=== PATIENT | male | born 1975 | race Caucasian/White ===

== ENCOUNTER 2020-08-19 09:46 | Emergency (ER) | payer OTHER ==
[2020-08-19] MEDS ORDERED: Reglan 10 MG/2 ML IV ONE (09:59)
[2020-08-19] MEDS ORDERED: MORPHINE SULFATE 10 MG/ML IV ONE (09:59)
[2020-08-19] MEDS ORDERED: Sodium Chloride 0.9% 1000 ML 1,000 ML IV STA (09:59)
[2020-08-19] MEDS ORDERED: Sodium Chloride 0.9% 1000 ML 1,000 ML ONE (10:08)
[2020-08-19] MEDS ORDERED: Reglan 10 MG/2 ML ONE (10:08)
[2020-08-19] MEDS ORDERED: MORPHINE SULFATE 10 MG/ML ONE (10:08)
[2020-08-19 10:25] LABS: BASOPHIL % 1.2 % (0.0-0.4); Basophil (Absolute #) 0.08 (0-0.4); Eosinophil % 1.9 % (0.00-5.0); Eosinophil (Absolute #) 0.13 (0-0.5); Hematocrit 43.2 % (42-50); Lymphocyte (Absolute #) 2.21 (1.0-4.6); Lymphocytes % 32.3 % (24.0-44.0); Mean Cell Volume 92.9 fl (78-100); Mean Corpuscular Hemoglobin 30.1 pg (26-32); Mean Corpuscular Hgb Concent. 32.4 g/dl (32-36); Mean Platelet Volume 12.8 fl (7.5-11.0); Monocyte (Absolute #) 0.62 (0.0-1.3); Monocytes % 9.1 % (0.0-12.0); Neutrophil % 55.5 % (36.0-66.0); Platelet Count 253 K/mm3 (150-450); Red Blood Count 4.65 M/mm3 (4.1-5.6); Red Cell Distribution Width 13.5 % (11.5-14.0); White Blood Count 6.8 K/mm3 (4.0-10.5)
--- NOTE | 2020-08-19 10:47 | XRAY ---
Indication: Right upper quadrant pain. Two-dimensional gallbladder sonogram performed. Comparison: None Pancreas obscured due to overlying bowel gas. Gallbladder normally distended without gallstones, wall thickening, or pericholecystic fluid. Common bile duct measures 3.5 mm. No intrahepatic biliary distention or ascites. Remaining visualized liver and right kidney sonographically unremarkable. Right kidney measures 10.6 cm in length. Impression: Pancreas not visualized. Remaining gallbladder sonogram is negative.
[2020-08-19 10:59] LABS: ALBUMIN 4.6 g/dL (3.5-5.0); ALKALINE PHOSPHATASE 98 U/L (38-126); AMYLASE 86 U/L (30-110); ANION GAP 12.6 MEQ/L (5-15); BLOOD UREA NITROGEN 17 mg/dL (9-20); CHLORIDE 106 mmol/L (98-107); Calcium 9.5 mg/dL (8.4-10.2); Carbon Dioxide 25 mmol/L (22-30); EST GLOMERULAR FILTRATION RATE > 60.0 ML/MIN; Glucose 115 mg/dL (74-106); LIPASE 111 U/L (23-300); Potassium 4.2 mmol/L (3.5-5.1); SGOT/AST 25 U/L (17-59); SGPT/ALT 28 U/L (0-50); SODIUM 140 mmol/L (137-145); Total Protein 7.5 g/dL (6.3-8.2)
[2020-08-19 11:18] LABS: Appearance CLEAR (CLEAR); Bilirubin NEGATIVE (NEGATIVE); Blood NEGATIVE Ery/ul (0-5); Glucose NEGATIVE (NEGATIVE); Ketones NEGATIVE (NEGATIVE); Leukocyte Esterase NEGATIVE (NEGATIVE); Mucus SLIGHT /HPF (NEGATIVE); Nitrite NEGATIVE (NEGATIVE); Protein,Urine Dip NEGATIVE (Negative); RBC 0-2 /HPF (0-2); Urobilinogen NEGATIVE mg/dL (0-1)
--- NOTE | 2020-08-19 11:30 | ERPHSYRPT ---
- History of Present Illness Time Seen by Provider: 08/19/20 10:00 Historian: patient Exam Limitations: no limitations Patient Subjective Stated Complaint: Pt began having pain in his RUQ yesterday that has gotten worse today Triage Nursing Assessment: Pt's brought him to the ER, holding RUQ, hypertensive, rates pain 9/10, pulses normal, denies injury, denies any abdominal surgeries, skin n/w/diaphoretic Physician History: 44 years old male presented in the ER with chief complaint of right upper quadrant pain sudden onset yesterday, moderate to severe intensity, sharp in nature, nonradiating, aggravated with movement palpation and unable to find a comfortable spot. Associated with nausea but no vomiting. Denies any fever chills or cough. Denies any history of gallbladder issues in the past. Timing/Duration: yesterday, sudden, worse Activities at Onset: rest Quality: sharpness, stabbing Abdominal Pain Onset Location: RUQ, flank Pain Radiation: no radiation Severity of Pain-Max: severe Severity of Pain-Current: severe Modifying Factors: Worsens With: movement, palpation Associated Symptoms: nausea, No vomiting Previous symptoms: no prior history Allergies/Adverse Reactions: gabapentin Allergy (Verified 08/19/20 10:09) Home Medications: Buprenorphine HCl [Belbuca] 450 mcg PO Q12H 08/19/20 [History] Lisinopril 10 mg [Zestril 10 MG] 10 mg PO DAILY 08/19/20 [History] Meloxicam 15 mg PO DAILY 08/19/20 [History] Pregabalin 150 mg PO TID 08/19/20 [History] Travel Risk - International Travel If Yes, where;: N - Coronavirus Screening Close contact with a COVID-19 positive Pt in past 14-21 Days: No - Review of Systems Constitutional: No Symptoms Eyes: No Symptoms Ears, Nose, & Throat: No Symptoms Respiratory: No Symptoms Cardiac: No Symptoms Abdominal/Gastrointestinal: Abdominal Pain, Nausea Genitourinary Symptoms: No Symptoms Musculoskeletal: No Symptoms Skin: No Symptoms Neurological: No Symptoms Psychological: No Symptoms Endocrine: No Symptoms Hematologic/Lymphatic: No Symptoms Immunological/Allergic: No Symptoms - Past Medical History Pertinent Past Medical History: Yes Musculoskeletal History: Other History: Other - Past Surgical History Past Surgical History: Yes Musculoskeletal: Orthopedic Surgery Other Surgical History: has stimulator in back, shoulder - Social History Smoking Status: Former smoker Exposure to second hand smoke: No Drug Use: none Patient Lives Alone: No - Nursing Vital Signs Nursing Vital Signs: Initial Vital Signs Temperature 98.3 F 08/19/20 09:52 Pulse Rate 77 08/19/20 09:52 Blood Pressure 153/86 08/19/20 09:52 O2 Sat by Pulse Oximetry 98 08/19/20 09:52 Pain Scale Pain Intensity 6 - Physical Exam General Appearance: no apparent distress Eye Exam: PERRL/EOMI, eyes nml inspection Ears, Nose, Throat Exam: normal ENT inspection, pharynx normal Neck Exam: normal inspection, non-tender, supple, full range of motion Respiratory Exam: normal breath sounds, lungs clear Cardiovascular Exam: regular rate/rhythm, normal heart sounds Gastrointestinal/Abdomen Exam: soft, normal bowel sounds, tenderness (Right upper quadrant), guarding Back Exam: normal inspection, normal range of motion, No CVA tenderness Extremity Exam: normal inspection, normal range of motion, pelvis stable Neurologic Exam: alert, oriented x 3, cooperative, 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 Skin Exam: normal color SpO2 Interpretation: normal SpO2: 97 O2 Delivery: Room Air Ordered Tests: Active Orders 24 hr Category Date Time Status IV Insertion STAT Care 08/19/20 09:59 Completed NPO (ED) STAT Care 08/19/20 09:59 Completed ABDOMEN AND PELVIS W CONTRAST [CT] Stat Exams 08/19/20 10:51 Completed GALLBLADDER [US] Stat Exams 08/19/20 10:00 Completed AMYLASE Stat Lab 08/19/20 10:04 Completed CBC W DIFF Stat Lab 08/19/20 10:04 Completed CMP Stat Lab 08/19/20 10:04 Completed LIPASE Stat Lab 08/19/20 10:04 Completed Lactic Acid Stat Lab 08/19/20 09:59 Completed UA W/RFX UR CULTURE Stat Lab 08/19/20 11:13 Completed Medication Summary Discontinued Medications Generic Name Dose Route Start Last Admin Trade Name Freq PRN Reason Stop Dose Admin Sodium Chloride 1,000 mls @ 999 mls/hr 08/19/20 09:59 08/19/20 11:19 Sodium Chloride 0.9% 1000 Ml IV 08/19/20 10:59 Infused .Q1H1M STA Infusion Sodium Chloride Confirm 08/19/20 10:08 Sodium Chloride 0.9% 1000 Ml Administered 08/19/20 10:09 Dose 1,000 mls @ ud .ROUTE .STK-MED ONE Ketorolac Tromethamine 30 mg 08/19/20 11:44 08/19/20 11:46 Toradol 30 Mg Injection IV 08/19/20 11:45 30 mg STAT ONE Administration Ketorolac Tromethamine Confirm 08/19/20 11:45 Toradol 30 Mg Injection Administered 08/19/20 11:46 Dose 30 mg .ROUTE .STK-MED ONE Metoclopramide HCl 10 mg 08/19/20 09:59 08/19/20 10:11 Reglan 10 Mg/2 Ml IV 08/19/20 10:00 10 mg STAT ONE Administration Metoclopramide HCl Confirm 08/19/20 10:08 Reglan 10 Mg/2 Ml Administered 08/19/20 10:09 Dose 10 mg .ROUTE .STK-MED ONE Morphine Sulfate 6 mg 08/19/20 09:59 08/19/20 10:12 Morphine Sulfate 10 Mg/Ml IV 08/19/20 10:00 6 mg STAT ONE Administration Morphine Sulfate Confirm 08/19/20 10:08 Morphine Sulfate 10 Mg/Ml Administered 08/19/20 10:09 Dose 10 mg .ROUTE .STK-MED ONE Lab/Rad Data: Laboratory Result Diagrams 08/19/20 10:04 08/19/20 10:04 Laboratory Results 08/19/20 08/19/20 08/19/20 Range/Units 11:13 10:04 10:04 WBC 6.8 (4.0-10.5) K/mm3 RBC 4.65 (4.1-5.6) M/mm3 Hgb 14.0 (12.5-18.0) gm/dl Hct 43.2 (42-50) % MCV 92.9 (78-100) fl MCH 30.1 (26-32) pg MCHC 32.4 (32-36) g/dl RDW 13.5 (11.5-14.0) % Plt Count 253 (150-450) K/mm3 MPV 12.8 H (7.5-11.0) fl Gran % 55.5 (36.0-66.0) % Eos # (Auto) 0.13 (0-0.5) Absolute Lymphs (auto) 2.21 (1.0-4.6) Absolute Monos (auto) 0.62 (0.0-1.3) Lymphocytes % 32.3 (24.0-44.0) % Monocytes % 9.1 (0.0-12.0) % Eosinophils % 1.9 (0.00-5.0) % Basophils % 1.2 (0.0-0.4) % Absolute Granulocytes 3.80 (1.4-6.9) Basophils # 0.08 (0-0.4) Sodium 140 (137-145) mmol/L Potassium 4.2 (3.5-5.1) mmol/L Chloride 106 (98-107) mmol/L Carbon Dioxide 25 (22-30) mmol/L Anion Gap 12.6 (5-15) MEQ/L BUN 17 (9-20) mg/dL Creatinine 0.90 (0.66-1.25) mg/dL Estimated GFR > 60.0 ML/MIN Glucose 115 H (74-106) mg/dL Lactic Acid (0.4-2.0) Calcium 9.5 (8.4-10.2) mg/dL Total Bilirubin 0.20 (0.2-1.3) mg/dL AST 25 (17-59) U/L ALT 28 (0-50) U/L Alkaline Phosphatase 98 (38-126) U/L Serum Total Protein 7.5 (6.3-8.2) g/dL Albumin 4.6 (3.5-5.0) g/dL Amylase 86 (30-110) U/L Lipase 111 (23-300) U/L Urine Color YELLOW (YELLOW) Urine Appearance CLEAR (CLEAR) Urine pH 7.0 (5-6) Ur Specific [place] 1.020 (1.005-1.025) Urine Protein NEGATIVE (Negative) Urine Ketones NEGATIVE (NEGATIVE) Urine Blood NEGATIVE (0-5) Slick/ul Urine Nitrite NEGATIVE (NEGATIVE) Urine Bilirubin NEGATIVE (NEGATIVE) Urine Urobilinogen NEGATIVE (0-1) mg/dL Ur Leukocyte Esterase NEGATIVE (NEGATIVE) Urine WBC (Auto) 3-5 (0-5) /HPF Urine RBC (Auto) 0-2 (0-2) /HPF U Epithel Cells (Auto) NONE (FEW) /HPF Urine Bacteria (Auto) NONE (NEGATIVE) /HPF Urine Mucus (Auto) SLIGHT (NEGATIVE) /HPF Urine Culture Reflexed NO (NO) Urine Glucose NEGATIVE (NEGATIVE) mg/dL Slides for Path Review YES 08/19/20 Range/Units 09:59 WBC (4.0-10.5) K/mm3 RBC (4.1-5.6) M/mm3 Hgb (12.5-18.0) gm/dl Hct (42-50) % MCV (78-100) fl MCH (26-32) pg MCHC (32-36) g/dl RDW (11.5-14.0) % Plt Count (150-450) K/mm3 MPV (7.5-11.0) fl Gran % (36.0-66.0) % Eos # (Auto) (0-0.5) Absolute Lymphs (auto) (1.0-4.6) Absolute Monos (auto) (0.0-1.3) Lymphocytes % (24.0-44.0) % Monocytes % (0.0-12.0) % Eosinophils % (0.00-5.0) % Basophils % (0.0-0.4) % Absolute Granulocytes (1.4-6.9) Basophils # (0-0.4) Sodium (137-145) mmol/L Potassium (3.5-5.1) mmol/L Chloride (98-107) mmol/L Carbon Dioxide (22-30) mmol/L Anion Gap (5-15) MEQ/L BUN (9-20) mg/dL Creatinine (0.66-1.25) mg/dL Estimated GFR ML/MIN Glucose (74-106) mg/dL Lactic Acid 2.2 H (0.4-2.0) Calcium (8.4-10.2) mg/dL Total Bilirubin (0.2-1.3) mg/dL AST (17-59) U/L ALT (0-50) U/L Alkaline Phosphatase (38-126) U/L Serum Total Protein (6.3-8.2) g/dL Albumin (3.5-5.0) g/dL Amylase (30-110) U/L Lipase (23-300) U/L Urine Color (YELLOW) Urine Appearance (CLEAR) Urine pH (5-6) Ur Specific [place] (1.005-1.025) Urine Protein (Negative) Urine Ketones (NEGATIVE) Urine Blood (0-5) Slick/ul Urine Nitrite (NEGATIVE) Urine Bilirubin (NEGATIVE) Urine Urobilinogen (0-1) mg/dL Ur Leukocyte Esterase (NEGATIVE) Urine WBC (Auto) (0-5) /HPF Urine RBC (Auto) (0-2) /HPF U Epithel Cells (Auto) (FEW) /HPF Urine Bacteria (Auto) (NEGATIVE) /HPF Urine Mucus (Auto) (NEGATIVE) /HPF Urine Culture Reflexed (NO) Urine Glucose (NEGATIVE) mg/dL Slides for Path Review - Progress Progress: improved, pain not gone completely Progress Note: 08/19/20 44 years old is evaluated for right upper quadrant pain. He is given IV fluid and pain medications. Has normal white count, grossly unremarkable chemistries. I have obtained ultrasound which is negative for acute cholecystitis. I have done CT abdomen pelvis with contrast which showed some constipation but no other acute findings to explain his pain. Do not know the exact cause of his pain could be musculoskeletal but have ruled out all the major emergencies. He is advised to take Tylenol ibuprofen as needed along with the pain medication he is on. Discussed signs symptoms of worsening needing return to ER which he seems understanding. At this point I do not think patient needs any further work-up in the ER or needs to be admitted and is stable for discharge. Counseled pt/family regarding: lab results, diagnosis, need for follow-up, rad results, smoking cessation - Departure Departure Disposition: Home Clinical Impression: Right upper quadrant abdominal pain Constipation Qualifiers: Constipation type: unspecified constipation type Qualified Code(s): K59.00 - Constipation, unspecified Condition: Stable Critical Care Time: No Referrals: DOCTOR,NO FAMILY [Primary Care Provider] - MARY DAI MD [ACTIVE STAFF] - (1-2 days for re evaluation ) Instructions: Acute Abdomen (Belly Pain), Adult (DC) Additional Instructions: Continue with your current pain medications. Take stool softener and MiraLAX daily. Follow-up with primary care physician for reevaluation. Return to ER for worsening pain or if develop nausea vomiting diarrhea etc. Prescriptions: Polyethylene Glycol 3350 [Miralax] 17 gm PO DAILY 30 Days #30 [email or web address]
[2020-08-19] MEDS ORDERED: TORAdol 30 mg Injection IV ONE (11:44)
[2020-08-19] MEDS ORDERED: TORAdol 30 mg Injection ONE (11:45)
--- NOTE | 2020-08-19 11:47 | XRAY ---
Indication: Right upper quadrant/right flank pain. Multiple contiguous axial images obtained through the abdomen and pelvis using 80 cc Isovue 370 contrast only. Comparison: None Lung bases clear of infiltrate or effusion. Heart is not enlarged. Noncontrasted stomach and bowel loops appear nonobstructed. Normal appendix. There is moderate diffuse scattered colonic fecal debris greatest in the ascending and transverse colon. No free fluid/air. Remaining liver, gallbladder, pancreas, spleen, adrenal glands, kidneys, ureters, bladder, and aorta appear normal in CT appearance and attenuation. No pathologic retroperitoneal lymphadenopathy. Osseous structures intact with incidental mild L5-S1 degenerative disc disease and left posterior spinal stimulator device with epidural leads terminating T7 level. Small fatty left inguinal hernia Impression: 1. Diffuse fecal stasis, small fatty left inguinal hernia, and chronic bony findings. 2. Remaining CT abdomen/pelvis with contrast exam is negative.
[2020-08-19 12:27] VITALS: BP 124/77; PULSE 65; O2SAT 97
[2020-08-19 14:01] LABS: Slide Review 1 YES
== END 2020-08-19 13:03 | disposition home or self-care (01) ==
LOC: ED 09:46
DX: R10.11 Right upper quadrant pain (principal); K59.00 Constipation, unspecified
CPT/HCPCS: 36415; 74177; 76705; 80053; 81001; 82150; 83605; 83690; 85025; 96360; 96374; 96375; 99284; J1885; J2270

== ENCOUNTER 2021-01-19 12:34 | Emergency (ER) | payer OTHER ==
--- NOTE | 2021-01-19 12:39 | ERPHSYRPT ---
- History of Present Illness Time Seen by Provider: 01/19/21 12:39 Source: patient Exam Limitations: clinical condition Physician History: This is a 45-year-old white male who has history of chronic pain issues and has a pain stimulator in his back for recurrent herniated disc. He has not had any recent injury to his back but 2 days ago he began having intermittent back pain that has worsened and now is persistently present. He states in his left lower back that goes down his buttock and his posterior left leg. Patient arrives by home vehicle driven by his . Patient has a pain specialist, Dr. Mills. The patient did not call his pain specialist yesterday or today despite having the pain. Timing/Duration: day(s) (2) Quality: radiating, sharp, cramping Back Pain Location: lumbar spine, paraspinous muscles Back Pain Radiation: buttocks, upper legs (Posteriorly) Severity of Pain-Max: moderate Severity of Pain-Current: moderate Associated Symptoms: denies symptoms Previous symptoms: same symptoms as today Allergies/Adverse Reactions: gabapentin Allergy (Verified 01/19/21 12:46) Home Medications: Buprenorphine HCl [Belbuca] 750 mcg PO Q12H 08/19/20 [History] Lisinopril 10 mg [Zestril 10 MG] 10 mg PO DAILY 08/19/20 [History] Meloxicam 15 mg PO DAILY 08/19/20 [History] Pregabalin 150 mg PO TID 08/19/20 [History] Travel Risk - International Travel Have you traveled outside of the country in past 3 weeks: No - Coronavirus Screening Are you exhibiting any of the following symptoms?: No Close contact with a COVID-19 positive Pt in past 14-21 Days: No - Vaccine Status Have you recieved a Covid-19 vaccination: No - Review of Systems Constitutional: No Symptoms Eyes: No Symptoms Ears, Nose, & Throat: No Symptoms Respiratory: No Symptoms Cardiac: No Symptoms Abdominal/Gastrointestinal: No Symptoms Genitourinary Symptoms: No Symptoms Musculoskeletal: Back Pain Skin: No Symptoms Neurological: No Symptoms Psychological: No Symptoms Endocrine: No Symptoms Hematologic/Lymphatic: No Symptoms Immunological/Allergic: No Symptoms All Other Systems: Reviewed and Negative - Past Medical History Pertinent Past Medical History: Yes Musculoskeletal History: Other History: Other - Past Surgical History Past Surgical History: Yes Musculoskeletal: Orthopedic Surgery Other Surgical History: has stimulator in back, shoulder - Social History Smoking Status: Former smoker Exposure to second hand smoke: No Drug Use: none Patient Lives Alone: No - Nursing Vital Signs Nursing Vital Signs: Initial Vital Signs Temperature 98.4 F 01/19/21 12:36 Pulse Rate 83 01/19/21 12:36 Blood Pressure 152/73 01/19/21 12:36 O2 Sat by Pulse Oximetry 98 01/19/21 12:36 Pain Scale Pain Intensity [Left Lower 10 Posterior Distal Back] Pain Intensity 10 - Physical Exam General Appearance: moderate distress, alert, anxiety, other (Patient is writhing around back and forth up and down on his hospital room bed despite having severe back pain) Eye Exam: PERRL/EOMI, eyes nml inspection Ears, Nose, Throat Exam: normal ENT inspection, moist mucous membranes Neck Exam: normal inspection, non-tender, supple, full range of motion Respiratory Exam: normal breath sounds, lungs clear, airway intact, No chest tenderness, No respiratory distress Cardiovascular Exam: regular rate/rhythm, normal heart sounds, normal peripheral pulses Gastrointestinal Exam: soft, normal bowel sounds, No tenderness Rectal Exam: not done Back Exam: normal inspection, decreased range of motion, muscle spasm, No CVA tenderness, No vertebral tenderness Extremity Exam: normal inspection, normal range of motion, pelvis stable Neurologic Exam: alert, oriented x 3, cooperative, 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 Skin Exam: normal color, warm, dry Lymphatic Exam: No adenopathy SpO2 Interpretation: normal O2 Delivery: Room Air - Course Nursing assessment & vital signs reviewed: Yes Ordered Tests: Medication Summary Generic Name Dose Route Start Last Admin Trade Name Agustín PRN Reason Stop Dose Admin Hydromorphone HCl 1 mg 01/19/21 12:55 Hydromorphone 1 Mg/Ml Injection IM 01/19/21 12:56 STAT ONE - Progress Progress: improved, pain not gone completely, re-examined Counseled pt/family regarding: diagnosis, need for follow-up - Departure Departure Disposition: Home Clinical Impression: Sciatica Condition: Stable Critical Care Time: No Referrals: DOCTOR,NO FAMILY [Primary Care Provider] - Additional Instructions: Call your pain specialist today to make arrangements for follow-up appointment to deal with your chronic pain issues. Hold your meloxicam until you complete your prednisone medication Prescriptions: Carisoprodol 350 mg [Soma 350 mg] 350 mg PO Q8H PRN PRN #10 tablet PRN Reason: Muscle Spasms Prednisone 10 mg [Deltasone 10 mg] 10 mg PO TID #12 tablet
[2021-01-19 12:46] VITALS: BP 152/73; PULSE 83; O2SAT 98
[2021-01-19] MEDS ORDERED: Hydromorphone 1 mg/ml Injection ONE (13:02)
[2021-01-19] MEDS ORDERED: Ativan 2 MG/1 ML VIAL ONE (13:02)
[2021-01-19] MEDS ORDERED: solu-MEDROL 125 MG ONE (13:02)
[2021-01-19] MEDS ORDERED: ZOFRAN ODT 4 MG ONE (13:02)
[2021-01-19] MEDS: solu-MEDROL 125 MG IM ONE (13:04)
[2021-01-19] MEDS: ZOFRAN ODT 4 MG PO ONE (13:04)
[2021-01-19] MEDS: Hydromorphone 1 mg/ml Injection IM ONE (13:04)
[2021-01-19] MEDS: Ativan 2 MG/1 ML VIAL IM ONE (13:04)
== END 2021-01-19 13:31 | disposition home or self-care (01) ==
LOC: ED 12:34
DX: M54.32 Sciatica, left side (principal)
CPT/HCPCS: 96372; 99284; J1170; J2060; J2930; Q0162

== ENCOUNTER 2021-08-26 16:58 | Emergency (ER) | payer OTHER ==
--- NOTE | 2021-08-26 17:18 | ERPHSYRPT ---
- History of Present Illness Time Seen by Provider: 08/26/21 17:17 Source: patient Exam Limitations: no limitations Patient Subjective Stated Complaint: pt to ER with complaints of back pain and left leg pain. pt states he has chronic pain but it has been gettting worse the past couple days. pt states he hasnt been able to take his pain meds much because he is nauseated from all the pain and vomits the meds up. Triage Nursing Assessment: pt a&ox4. pt rolling around in pain. pt jerking every once in awhile stating he has shooting pain that goes down his L leg. Physician History: This is a obese 45-year-old white male who has a pain specialist, Dr. Mills. The patient is on Beecher, prednisone and Soma. However, he states in the last 2 to 3 days he has not been able to take his medication because of nausea and vo miting issues and worsening pain in the mornings the last 2 to 3 days. He did not suffer any acute trauma or fall. He has a pain stimulator in his back. He has not contacted his pain specialist despite having these symptoms for a few days. He has no loss of bowel or bladder control. Timing/Duration: day(s) (2 to 3 days) Method of Injury: other (No fall or trauma) Quality: sharp, stabbing Back Pain Location: lumbar spine, paraspinous muscles (Left side) Severity of Pain-Max: moderate Severity of Pain-Current: moderate Modifying Factors: Improves With: movement Associated Symptoms: lower back pain, No urinary incontinence, No loss of bowel control, No numbness in legs/feet Allergies/Adverse Reactions: gabapentin Allergy (Verified 08/26/21 17:17) Home Medications: Buprenorphine HCl [Belbuca] 750 mcg PO Q12H 08/19/20 [History] Lisinopril 10 mg [Zestril 10 MG] 10 mg PO DAILY 08/19/20 [History] Meloxicam 15 mg PO DAILY 08/19/20 [History] Pregabalin 150 mg PO TID 08/19/20 [History] Hx Tetanus, Diphtheria Vaccination/Date Given: Yes Hx Influenza Vaccination/Date Given: Yes Hx Pneumococcal Vaccination/Date Given: No Immunizations Up to Date: Yes Travel Risk - International Travel Have you traveled outside of the country in past 3 weeks: No - Coronavirus Screening Are you exhibiting any of the following symptoms?: No Close contact with a COVID-19 positive Pt in past 14-21 Days: No - Vaccine Status Have you recieved a Covid-19 vaccination: Yes 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 - Vaccination Dates Date of 2cond Vaccination (if applicable): january - Review of Systems Constitutional: No Symptoms Eyes: No Symptoms Ears, Nose, & Throat: No Symptoms Respiratory: No Symptoms Cardiac: No Symptoms Abdominal/Gastrointestinal: No Symptoms Genitourinary Symptoms: No Symptoms Musculoskeletal: Back Pain, No Fall, No Injury Skin: No Symptoms Neurological: No Symptoms Psychological: No Symptoms Endocrine: No Symptoms Hematologic/Lymphatic: No Symptoms Immunological/Allergic: No Symptoms All Other Systems: Reviewed and Negative - Past Medical History Pertinent Past Medical History: Yes Musculoskeletal History: Other History: Other - Past Surgical History Past Surgical History: Yes Musculoskeletal: Orthopedic Surgery Other Surgical History: has stimulator in back, shoulder - Social History Smoking Status: Former smoker Exposure to second hand smoke: No Drug Use: none Patient Lives Alone: No - Nursing Vital Signs Nursing Vital Signs: Initial Vital Signs Temperature 98.1 F 08/26/21 17:08 Pulse Rate 78 08/26/21 17:08 Respiratory Rate 18 08/26/21 17:08 Blood Pressure 137/65 08/26/21 17:08 O2 Sat by Pulse Oximetry 99 08/26/21 17:08 Pain Scale Pain Intensity 10 - Physical Exam General Appearance: moderate distress, alert, anxiety, obese Eye Exam: PERRL/EOMI, eyes nml inspection Ears, Nose, Throat Exam: normal ENT inspection, moist mucous membranes Neck Exam: normal inspection, non-tender, supple, full range of motion Respiratory Exam: normal breath sounds, lungs clear, airway intact, No chest tenderness, No respiratory distress Cardiovascular Exam: regular rate/rhythm, normal heart sounds, normal peripheral pulses Gastrointestinal Exam: soft, normal bowel sounds, No tenderness Rectal Exam: not done Back Exam: normal inspection, decreased range of motion, muscle spasm Extremity Exam: normal inspection, normal range of motion, pelvis stable Neurologic Exam: alert, oriented x 3, cooperative, 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, normal mood/affect Skin Exam: normal color, warm, dry Lymphatic Exam: No adenopathy SpO2 Interpretation: normal SpO2: 99 O2 Delivery: Room Air - Course Nursing assessment & vital signs reviewed: Yes Ordered Tests: Medication Summary Discontinued Medications Generic Name Dose Route Start Last Admin Trade Name Freq PRN Reason Stop Dose Admin Methylprednisolone Sodium 0 mg 08/26/21 17:46 Succinate 125 mg/ Sterile IM 08/26/21 17:47 Water 2 ml STAT ONE Hydromorphone HCl 1 mg 08/26/21 17:45 Hydromorphone 1 Mg/1ml Inj 1 Mg/Ml Syringe IM 08/26/21 17:46 STAT ONE Lorazepam 1 mg 08/26/21 17:47 Lorazepam 2 Mg/1 Ml 2 Mg Vial IM 08/26/21 17:48 STAT ONE Prochlorperazine Edisylate 10 mg 08/26/21 17:46 Prochlorperazine Edisylate 10 Mg/2 Ml Vial IM 08/26/21 17:47 STAT ONE - Progress Progress: improved, pain not gone completely Counseled pt/family regarding: diagnosis, need for follow-up - Departure Departure Disposition: Home Clinical Impression: Acute exacerbation of chronic low back pain Condition: Stable Critical Care Time: No Referrals: [facility] [Primary Care Provider] - Follow up/PCP as directed Additional Instructions: Call your pain specialist tomorrow morning for further management and instructions. Continue your medication as prescribed. Stop your Zofran and use the Phenergan suppositories for nausea control. Prescriptions: Promethazine HCl 25 mg [Phenergan 25 mg] 25 mg PO Q8H PRN PRN #10 tablet PRN Reason: Nausea/Vomiting
[2021-08-26] MEDS ORDERED: Hydromorphone 1 mg/ml Injection IM ONE (17:45)
[2021-08-26] MEDS ORDERED: Compazine 10 MG/2 ML IM ONE (17:46)
[2021-08-26] MEDS ORDERED: solu-MEDROL 125 MG, Sterile H2O 10 ml 2 ML IM ONE ×2 (17:46)
[2021-08-26] MEDS ORDERED: Ativan 2 MG/1 ML VIAL IM ONE (17:47)
[2021-08-26] MEDS ORDERED: Ativan 2 MG/1 ML VIAL ONE (17:50)
[2021-08-26] MEDS ORDERED: Hydromorphone 1 mg/ml Injection ONE (17:51)
[2021-08-26] MEDS ORDERED: solu-MEDROL ONE (17:51)
[2021-08-26] MEDS ORDERED: Compazine 10 MG/2 ML ONE (17:51)
[2021-08-26 18:11] VITALS: BP 138/84; PULSE 79; O2SAT 96
== END 2021-08-26 18:20 | disposition home or self-care (01) ==
LOC: ED 16:58
DX: M54.50 Low back pain, unspecified (principal); G89.29 Other chronic pain; R11.2 Nausea with vomiting, unspecified; Z79.891 Long term (current) use of opiate analgesic; Z96.82 Presence of neurostimulator
CPT/HCPCS: 96372; 99284; J1170; J2060; J2930

== ENCOUNTER 2023-05-01 16:14 | Emergency (ER) | payer MEDICARE, OTHER | END 2023-05-01 18:55 | disposition left against medical advice (07) | LOC: ED 16:14 | DX: Z53.21 Procedure and treatment not carried out due to patient leaving prior to being seen by health care provider (principal) ==

== ENCOUNTER 2023-07-15 10:51 | Emergency (ER) | payer MEDICARE, OTHER ==
[2023-07-15] MEDS ORDERED: Hydromorphone 1 mg/ml Injection IV ONE ×2 (11:01→14:54)
[2023-07-15] MEDS ORDERED: DECADRON 10MG INJ. IV ONE (11:01)
[2023-07-15] MEDS ORDERED: Sodium Chloride 0.9% 1000 ML 1,000 ML IV STA (11:01)
[2023-07-15] MEDS ORDERED: Zofran 4 MG/2 ML VIAL IV ONE (11:04)
[2023-07-15 11:06] VITALS: TEMP 100.9
[2023-07-15] MEDS ORDERED: Zofran 4 MG/2 ML VIAL ONE (11:26)
[2023-07-15] MEDS ORDERED: DECADRON 10MG INJ. ONE (11:27)
[2023-07-15] MEDS ORDERED: Hydromorphone 1 mg/ml Injection ONE ×2 (11:27→15:14)
[2023-07-15] MEDS ORDERED: Sodium Chloride 0.9% 1000 ML 1,000 ML ONE (11:27)
[2023-07-15 11:28] LABS: Absolute Neutrophil Ct (ANC) 6.57 x10^3/uL (1.4-6.9); BASOPHIL % 0.6 % (0.0-0.4); Basophil (Absolute #) 0.05 x10^3/uL (0-0.4); Eosinophil % 0.8 % (0.00-5.0); Eosinophil (Absolute #) 0.07 x10^3/uL (0-0.5); Hematocrit 40.9 % (42-50); Hemoglobin 13.8 g/dL (12.5-18.0); IMMATURE GRAN # 0.01 x10^3u/L (0.00-0.03); IMMATURE GRAN % 0.1 % (0.00-0.4); Mean Cell Volume 90.5 fL (78-100); Mean Corpuscular Hemoglobin 30.5 pg (26-32); Mean Corpuscular Hgb Concent. 33.7 g/dL (32-36); Monocyte (Absolute #) 0.52 x10^3/uL (0.0-1.3); Monocytes % 5.8 % (0.0-12.0); Neutrophil % 72.7 % (36.0-66.0); Platelet Count 203 x10^3/uL (150-450); Red Blood Count 4.52 x10^6/uL (4.1-5.6); Red Cell Distribution Width 12.7 % (11.5-14.0)
[2023-07-15 12:07] LABS: AMYLASE 54 U/L (30-110); LIPASE 47 U/L (23-300)
[2023-07-15 12:09] LABS: ALBUMIN 4.4 g/dL (3.5-5.0); ALKALINE PHOSPHATASE 87 U/L (38-126); BLOOD UREA NITROGEN 17 mg/dL (9-20); CHLORIDE 105 mmol/L (98-107); Calcium 8.9 mg/dL (8.4-10.2); Carbon Dioxide 26 mmol/L (22-30); Creatinine 1 0.72 mg/dL (0.66-1.25); EST GLOMERULAR FILTRATION RATE > 60.0 ML/MIN; Glucose 131 mg/dL (74-106); Potassium 3.6 mmol/L (3.5-5.1); SGOT/AST 24 U/L (17-59); SGPT/ALT 18 U/L (0-50); SODIUM 137 mmol/L (137-145); Total Protein 6.8 g/dL (6.3-8.2)
--- NOTE | 2023-07-15 13:17 | ERPHSYRPT ---
- History of Present Illness Time Seen by Provider: 07/15/23 11:00 Source: patient, family Exam Limitations: clinical condition Patient Subjective Stated Complaint: Pt c/o of low back pain that radiates down his left leg and has low left abdominal pain Triage Nursing Assessment: brought pt to the ER, vitals wnl, rates pain as 10/10, pt rolling all over the bed and crying, states he has the pain in his back but his abdomen just feels sick, pulses normal, skin n/w/d, has a nerve stimulator in his back but states that it doesn't work, no bowel movement for 3- 4 days but states that is normal Physician History: Patient is a 47-year-old male who presents with low back pain which radiates down the left leg and abdominal pain and nausea. He has a long history of low back pain and has a 9 usable nerve stimulator implanted in his back. He is writhing crying in pain. He says he is had no bowel movement for 3 to 4 days he does take 30 mg of codeine several times a day as well as Buprenex long-acting. Timing/Duration: today Method of Injury: unknown Quality: radiating, stabbing Back Pain Location: lumbar spine Back Pain Radiation: lower legs Severity of Pain-Max: severe Severity of Pain-Current: severe Modifying Factors: Improves With: movement Associated Symptoms: nausea Allergies/Adverse Reactions: gabapentin Allergy (Verified 07/15/23 11:06) Home Medications: Buprenorphine HCl [Belbuca] 900 mcg PO Q12H 08/19/20 [History] Lisinopril 10 mg [Zestril 10 MG] 10 mg PO DAILY 08/19/20 [History] Chlorthalidone 25 mg PO DAILY 07/15/23 [History] Codeine Sulfate 30 mg PO QID 07/15/23 [History] Lemborexant [Dayvigo] 10 mg PO UD 07/15/23 [History] Pregabalin [Lyrica 150Mg] 150 mg PO TID 07/15/23 [History] Testosterone Cypionate 200 mg IM WEEKLY 07/15/23 [History] Hx Tetanus, Diphtheria Vaccination/Date Given: Yes Hx Influenza Vaccination/Date Given: Yes Hx Pneumococcal Vaccination/Date Given: No Travel Risk - International Travel Have you traveled outside of the country in past 3 weeks: No - Coronavirus Screening Are you exhibiting any of the following symptoms?: No Close contact with a COVID-19 positive Pt in past 14-21 Days: No - Vaccine Status Have you recieved a Covid-19 vaccination: Yes Bus Cleaner: Moderna - Vaccination Dates Date of 2cond Vaccination (if applicable): january - Review of Systems Constitutional: No Fever, No Chills Eyes: No Symptoms Ears, Nose, & Throat: No Symptoms Respiratory: No Cough, No Dyspnea Cardiac: No Chest Pain, No Edema, No Syncope Abdominal/Gastrointestinal: Abdominal Pain, Nausea, No Vomiting, No Diarrhea Genitourinary Symptoms: No Dysuria Musculoskeletal: Back Pain, No Neck Pain Skin: No Rash Neurological: No Dizziness, No Focal Weakness, No Sensory Changes Psychological: No Symptoms Endocrine: No Symptoms All Other Systems: Reviewed and Negative - Past Medical History Pertinent Past Medical History: Yes Musculoskeletal History: Other History: Other Other Medical History: l4 and l5 blown out disc - Past Surgical History Past Surgical History: Yes Musculoskeletal: Orthopedic Surgery Other Surgical History: has stimulator in back, shoulder. back surgery - Social History Smoking Status: Former smoker Exposure to second hand smoke: No Drug Use: marijuana Patient Lives Alone: No - Nursing Vital Signs Nursing Vital Signs: Initial Vital Signs Temperature 100.9 F 07/15/23 10:58 Pulse Rate 75 07/15/23 10:58 Respiratory Rate 20 07/15/23 10:58 Blood Pressure 138/66 07/15/23 10:58 O2 Sat by Pulse Oximetry 95 07/15/23 10:58 Pain Scale Pain Intensity 10 - Physical Exam General Appearance: severe distress Eye Exam: PERRL/EOMI, eyes nml inspection Neck Exam: normal inspection, non-tender, supple, full range of motion, No meningismus, No midline tenderness Respiratory Exam: normal breath sounds, lungs clear, No respiratory distress Cardiovascular Exam: regular rate/rhythm, normal heart sounds Gastrointestinal Exam: soft, tenderness, No mass Back Exam: decreased range of motion, muscle spasm Extremity Exam: normal inspection, normal range of motion, No calf tenderness, No pedal edema Neurologic Exam: alert, oriented x 3, cooperative, frame expander II-XII nml as tested, normal mood/affect, nml station & gait, sensation nml, No motor deficits Skin Exam: normal color, warm, dry, No rash SpO2 Interpretation: normal SpO2: 99 O2 Delivery: Room Air - Course Nursing assessment & vital signs reviewed: Yes - CT Exams Abdomen/Pelvis CT Interpretation: Tele-radiologist Report, Other (Teleradiology did not mention a grossly distended bladder which we noted and treated.) Ordered Tests: Active Orders 24 hr Category Date Time Status IV Insertion STAT Care 07/15/23 11:04 Active ABDOMEN AND PELVIS W/0 CONTRAS [CT] Stat Exams 07/15/23 13:18 Completed AMYLASE Stat Lab 07/15/23 11:25 Completed CBC W DIFF Stat Lab 07/15/23 11:25 Completed CMP Stat Lab 07/15/23 11:25 Completed LIPASE Stat Lab 07/15/23 11:25 Completed UA W/RFX UR CULTURE Stat Lab 07/15/23 14:31 Completed Urine Triage Profile Stat Lab 07/15/23 14:31 Received Medication Summary Discontinued Medications Generic Name Dose Route Start Last Admin Trade Name Freq PRN Reason Stop Dose Admin Dexamethasone Sodium Phosphate 8 mg 07/15/23 11:01 07/15/23 11:29 Dexamethasone Sod Phosphate 10 Mg/Ml IV 07/15/23 11:02 8 mg STAT ONE Administration Dexamethasone Sodium Phosphate Confirm 07/15/23 11:27 Dexamethasone Sod Phosphate 10 Mg/Ml Administered 07/15/23 11:28 Dose 10 mg .ROUTE .STK-MED ONE Hydromorphone HCl 1 mg 07/15/23 11:01 07/15/23 11:29 Hydromorphone 1 Mg/1ml Inj IV 07/15/23 11:02 1 mg STAT ONE Administration Hydromorphone HCl Confirm 07/15/23 11:27 Hydromorphone 1 Mg/1ml Inj Administered 07/15/23 11:28 Dose 1 mg .ROUTE .STK-MED ONE Sodium Chloride 1,000 mls @ 999 mls/hr 07/15/23 11:01 07/15/23 13:09 Sodium Chloride 0.9% 1000 Ml IV 07/15/23 12:01 Infused .Q1H1M STA Infusion Sodium Chloride Confirm 07/15/23 11:27 Sodium Chloride 0.9% 1000 Ml Administered 07/15/23 11:28 Dose 1,000 mls @ ud .ROUTE .STK-MED ONE Ketorolac Tromethamine 30 mg 07/15/23 13:28 07/15/23 13:31 Ketorolac Tromethamine 30 Mg/Ml Inj IV 07/15/23 13:29 30 mg STAT ONE Administration Ketorolac Tromethamine Confirm 07/15/23 13:30 Ketorolac Tromethamine 30 Mg/Ml Inj Administered 07/15/23 13:31 Dose 30 mg .ROUTE .STK-MED ONE Ondansetron HCl 4 mg 07/15/23 11:04 07/15/23 11:29 Ondansetron Hcl 4 Mg/2 Ml Vial IV 07/15/23 11:05 4 mg STAT ONE Administration Ondansetron HCl Confirm 07/15/23 11:26 Ondansetron Hcl 4 Mg/2 Ml Vial Administered 07/15/23 11:27 Dose 4 mg .ROUTE .STK-MED ONE Lab/Rad Data: Laboratory Result Diagrams 07/15/23 11:25 07/15/23 11:25 Laboratory Results 07/15/23 07/15/23 07/15/23 Range/Units 14:31 11:25 11:25 WBC (4.0-10.5) x10^3/uL RBC (4.1-5.6) x10^6/uL Hgb (12.5-18.0) g/dL Hct (42-50) % MCV (78-100) fL MCH (26-32) pg MCHC (32-36) g/dL RDW (11.5-14.0) % Plt Count (150-450) x10^3/uL MPV (7.5-11.0) fL Gran % (36.0-66.0) % Immature Gran % (Auto) (0.00-0.4) % Nucleat RBC Rel Count (0.00-0.1) % Eos # (Auto) (0-0.5) x10^3/uL Immature Gran # (Auto) (0.00-0.03) x10^3u/L Absolute Lymphs (auto) (1.0-4.6) x10^3/uL Absolute Monos (auto) (0.0-1.3) x10^3/uL Absolute Nucleated RBC (0.00-0.01) x10^3u/L Lymphocytes % (24.0-44.0) % Monocytes % (0.0-12.0) % Eosinophils % (0.00-5.0) % Basophils % (0.0-0.4) % Absolute Granulocytes (1.4-6.9) x10^3/uL Basophils # (0-0.4) x10^3/uL Sodium 137 (137-145) mmol/L Potassium 3.6 (3.5-5.1) mmol/L Chloride 105 (98-107) mmol/L Carbon Dioxide 26 (22-30) mmol/L Anion Gap 10.0 (5-15) MEQ/L BUN 17 (9-20) mg/dL Creatinine 0.72 (0.66-1.25) mg/dL Estimated GFR > 60.0 ML/MIN Glucose 131 H (74-106) mg/dL Calcium 8.9 (8.4-10.2) mg/dL Total Bilirubin 0.70 (0.2-1.3) mg/dL AST 24 (17-59) U/L ALT 18 (0-50) U/L Alkaline Phosphatase 87 (38-126) U/L Serum Total Protein 6.8 (6.3-8.2) g/dL Albumin 4.4 (3.5-5.0) g/dL Amylase 54 (30-110) U/L Lipase 47 (23-300) U/L Urine Color Yellow (Yellow) Urine Appearance Clear (Clear) Urine pH 7.5 (4.6-8.0) Ur Specific [place] 1.010 (1.005-1.030) Urine Protein Negative (Negative) Urine Glucose (UA) Negative (Negative) mg/dL Urine Ketones 15 A (Negative) Urine Blood Negative (Negative) Urine Nitrite Negative (Negative) Urine Bilirubin Negative (Negative) Urine Urobilinogen 0.2 (0.2) mg/dL Ur Leukocyte Esterase Negative (Negative) U Hyaline Cast (Auto) NONE SEEN (0-2) /LPF Urine Microscopic RBC 0-2 (0-5) /HPF Urine Microscopic WBC 0-2 (0-5) /HPF Ur Epithelial Cells None Seen (None Seen) /HPF Urine Bacteria None Seen (None Seen) /HPF Urine Culture Reflexed NO (NO) 07/15/23 Range/Units 11:25 WBC 9.0 (4.0-10.5) x10^3/uL RBC 4.52 (4.1-5.6) x10^6/uL Hgb 13.8 (12.5-18.0) g/dL Hct 40.9 L (42-50) % MCV 90.5 (78-100) fL MCH 30.5 (26-32) pg MCHC 33.7 (32-36) g/dL RDW 12.7 (11.5-14.0) % Plt Count 203 (150-450) x10^3/uL MPV 12.0 H (7.5-11.0) fL Gran % 72.7 H (36.0-66.0) % Immature Gran % (Auto) 0.1 (0.00-0.4) % Nucleat RBC Rel Count 0.0 (0.00-0.1) % Eos # (Auto) 0.07 (0-0.5) x10^3/uL Immature Gran # (Auto) 0.01 (0.00-0.03) x10^3u/L Absolute Lymphs (auto) 1.80 (1.0-4.6) x10^3/uL Absolute Monos (auto) 0.52 (0.0-1.3) x10^3/uL Absolute Nucleated RBC 0.00 (0.00-0.01) x10^3u/L Lymphocytes % 20.0 L (24.0-44.0) % Monocytes % 5.8 (0.0-12.0) % Eosinophils % 0.8 (0.00-5.0) % Basophils % 0.6 (0.0-0.4) % Absolute Granulocytes 6.57 (1.4-6.9) x10^3/uL Basophils # 0.05 (0-0.4) x10^3/uL Sodium (137-145) mmol/L Potassium (3.5-5.1) mmol/L Chloride (98-107) mmol/L Carbon Dioxide (22-30) mmol/L Anion Gap (5-15) MEQ/L BUN (9-20) mg/dL Creatinine (0.66-1.25) mg/dL Estimated GFR ML/MIN Glucose (74-106) mg/dL Calcium (8.4-10.2) mg/dL Total Bilirubin (0.2-1.3) mg/dL AST (17-59) U/L ALT (0-50) U/L Alkaline Phosphatase (38-126) U/L Serum Total Protein (6.3-8.2) g/dL Albumin (3.5-5.0) g/dL Amylase (30-110) U/L Lipase (23-300) U/L Urine Color (Yellow) Urine Appearance (Clear) Urine pH (4.6-8.0) Ur Specific [place] (1.005-1.030) Urine Protein (Negative) Urine Glucose (UA) (Negative) mg/dL Urine Ketones (Negative) Urine Blood (Negative) Urine Nitrite (Negative) Urine Bilirubin (Negative) Urine Urobilinogen (0.2) mg/dL Ur Leukocyte Esterase (Negative) U Hyaline Cast (Auto) (0-2) /LPF Urine Microscopic RBC (0-5) /HPF Urine Microscopic WBC (0-5) /HPF Ur Epithelial Cells (None Seen) /HPF Urine Bacteria (None Seen) /HPF Urine Culture Reflexed (NO) - Progress Progress: improved Medical Desision Making - Diagnostic Testing Diagnostic test were ordered, analyzed, and reviewed by me: Yes Radiological Interpretation: Reviewed by me, Teleradiologist Report - Risk of complications Low Risk: Low risk of morbidity from additional dx testing or treatment - Departure Departure Disposition: Home Clinical Impression: Urinary retention Condition: Stable Critical Care Time: No Referrals: [facility] [employer] SO[employer] STABILIZER [Primary Care Provider] - Follow up/PCP as directed Instructions: Urinary Retention (DC) Prescriptions: Ondansetron ODT 4 MG [Zofran Odt 4 mg] 4 mg PO Q6H PRN PRN #10 tablet PRN Reason: Vomiting Tamsulosin HCl 0.4 mg [Flomax 0.4 MG] 0.4 mg PO DAILY 15 Days #15 cap
[2023-07-15] MEDS ORDERED: TORAdol 30 mg Injection IV ONE (13:28)
[2023-07-15] MEDS ORDERED: TORAdol 30 mg Injection ONE (13:30)
--- NOTE | 2023-07-15 14:27 | XRAY ---
CLINICAL HISTORY:pain COMPARISON:none TECHNIQUE:CT scan of the abdomen was performed without IV contrast. FINDINGS: Liver is normal size and shape and with regular margins.No focal or diffuse parenchymal abnormality. No hepatic mass is identified. The portal vein, intrahepatic biliary radicals and the bile ducts are normal. Gall bladder appear normal with wall thickness. No radio opaque calculus or pericholecystic fluid was identified. Common bile appears normal. Pancreas appears normal. No peripancreatic fat stranding, pancreatic pseudocyst or peripancreatic fluid collection.Spleen normal in size, no mass seen. Both adrenal glands are unremarkable. Both kidneys are normal in size, shape and orientation. No calculi, cyst mass or hydronephrosis seen on either side. Both ureters and urinary bladder appear normal. Stomach and small bowel loops are unremarkable. fecal loading is noted in the cecum while the ileocecal junction appears unremarkable. Large bowel loops appear normal without evidence of bowel obstruction. The sigmoid and rectum appear normal. No evidence of significant enlargement of the mesenteric or retroperitoneal lymph nodes. Visualized thoracic and lumbar spine early degenerative changes in the spine with endplate sclerosis at L5-S1 level. Spinal cord nerve stimulator seen in place. Small calcific foci are noted in both hemipelvis likely phleboliths. IMPRESSION: 1. No acute abnormality was identified. 2. The liver, gallbladder, pancreas, bilateral kidneys and bowel loops appears unremarkable. Electronically Signed by: Myrtle Tidwell MD. (07/15/2023 13:26:15 DIE ATTACHER)
[2023-07-15 14:41] LABS: Appearance Clear (Clear); Bacteria None Seen /HPF (None Seen); Bilirubin Negative (Negative); Blood Negative (Negative); Epithelial Cells None Seen /HPF (None Seen); Glucose, Urine Negative (Negative); Hyaline Casts NONE SEEN /LPF (0-2); Ketones 15 (Negative); Leukocyte Esterase Negative (Negative); Nitrite Negative (Negative); Ph 7.5 (4.6-8.0); Protein,Urine Dip Negative (Negative); RBC 0-2 /HPF (0-5); Urobilinogen 0.2 mg/dL (0.2); WBC 0-2 /HPF (0-5)
[2023-07-15 14:42] LABS: ADD URINE CULTURE? NO (NO)
[2023-07-15 14:55] LABS: Amphetamine,Urine NEGATIVE (NEGATIVE); Barbiturate,Urine NEGATIVE (NEGATIVE); Benzodiazepine,Urine NEGATIVE (NEGATIVE); Cocaine,Urine NEGATIVE (NEGATIVE); Methadone,Urine NEGATIVE (NEGATIVE); Opiate,Urine POSITIVE (NEGATIVE); PCP,Urine NEGATIVE (NEGATIVE); THC,Urine POSITIVE (NEGATIVE)
[2023-07-15 15:03] VITALS: BP 112/68; PULSE 58; RESP 18; O2SAT 98
== END 2023-07-15 15:32 | disposition home or self-care (01) ==
LOC: ED 10:51
DX: R33.9 Retention of urine, unspecified (principal); M54.50 Low back pain, unspecified; R10.9 Unspecified abdominal pain; R11.0 Nausea; Z79.891 Long term (current) use of opiate analgesic; Z79.899 Other long term (current) drug therapy
CPT/HCPCS: 36000; 36415; 51702; 74176; 80053; 80307; 81001; 82150; 83690; 85025; 96360; 96374; 96375; 96376; 99284; J1100; J1170; J1885; J2405

== ENCOUNTER 2023-08-03 08:29 | Emergency (ER) | payer MEDICARE, OTHER ==
--- NOTE | 2023-08-03 08:36 | ERPHSYRPT ---
- History of Present Illness Time Seen by Provider: 08/03/23 08:36 Source: patient Exam Limitations: no limitations Physician History: This is a 47-year-old white male patient who was brought into the emergency department by patient's mother who provided additional, independent history. Patient has chronic back pain issues and he has been prescribed codeine and Belbuca to treat his severe, chronic, recurring back pain. He has nerve stimulator implanted into his back. He has a history of hypertension. Patient states that he did take his Belbuca this morning but did not take his codeine. He has been having difficulty urinating. He relatively recently had his Duran catheter removed and he contacted his specialist on they have told him to come in this morning to have Duran catheter put back in. Patient denies chest pain. Patient denies shortness of breath. Patient has no abdominal pain. Patient did not suffer any acute trauma or fall. Timing/Duration: today, worse Quality: sharp, stabbing Back Pain Location: lumbar spine Severity of Pain-Max: moderate Severity of Pain-Current: moderate Modifying Factors: Improves With: movement Associated Symptoms: problems urinating (Chronic recurring issue), No urinary incontinence, No loss of bowel control Previous symptoms: same symptoms as today, no recent treatment Allergies/Adverse Reactions: gabapentin Allergy (Verified 07/15/23 11:06) Home Medications: Buprenorphine HCl [Belbuca] 900 mcg PO Q12H 08/19/20 [History] Lisinopril 10 mg [Zestril 10 MG] 10 mg PO DAILY 08/19/20 [History] Chlorthalidone 25 mg PO DAILY 07/15/23 [History] Codeine Sulfate 30 mg PO QID 07/15/23 [History] Lemborexant [Dayvigo] 10 mg PO UD 07/15/23 [History] Pregabalin [Lyrica 150Mg] 150 mg PO TID 07/15/23 [History] Testosterone Cypionate 200 mg IM WEEKLY 07/15/23 [History] Hx Tetanus, Diphtheria Vaccination/Date Given: Yes Hx Influenza Vaccination/Date Given: Yes Hx Pneumococcal Vaccination/Date Given: No Travel Risk - International Travel Have you traveled outside of the country in past 3 weeks: No - Coronavirus Screening Are you exhibiting any of the following symptoms?: No Close contact with a COVID-19 positive Pt in past 14-21 Days: No - Vaccine Status Have you recieved a Covid-19 vaccination: Yes 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 - Vaccination Dates Date of 2cond Vaccination (if applicable): january - Review of Systems Constitutional: No Symptoms Eyes: No Symptoms Ears, Nose, & Throat: No Symptoms Respiratory: No Symptoms Cardiac: No Symptoms Abdominal/Gastrointestinal: No Symptoms Genitourinary Symptoms: Urinary Retention Musculoskeletal: Back Pain Skin: No Symptoms Neurological: No Symptoms Psychological: No Symptoms Endocrine: No Symptoms Hematologic/Lymphatic: No Symptoms Immunological/Allergic: No Symptoms All Other Systems: Reviewed and Negative - Past Medical History Pertinent Past Medical History: Yes Musculoskeletal History: Other History: Other Other Medical History: l4 and l5 blown out disc - Past Surgical History Past Surgical History: Yes Musculoskeletal: Orthopedic Surgery Other Surgical History: has stimulator in back, shoulder. back surgery - Social History Smoking Status: Former smoker Exposure to second hand smoke: No Drug Use: marijuana Patient Lives Alone: No - Nursing Vital Signs Nursing Vital Signs: Initial Vital Signs Temperature 97.2 F 08/03/23 08:35 Pulse Rate 72 08/03/23 08:35 Respiratory Rate 24 08/03/23 08:35 Blood Pressure 121/73 08/03/23 08:35 O2 Sat by Pulse Oximetry 98 08/03/23 08:35 Pain Scale Pain Intensity [Anterior/ 8 Posterior Abdomen] Pain Intensity 8 - Physical Exam General Appearance: alert, anxiety Eye Exam: PERRL/EOMI, eyes nml inspection Ears, Nose, Throat Exam: normal ENT inspection, moist mucous membranes Neck Exam: normal inspection, non-tender, supple, full range of motion Respiratory Exam: airway intact, No chest tenderness, No respiratory distress Gastrointestinal Exam: No tenderness Rectal Exam: not done Back Exam: vertebral tenderness, decreased range of motion, muscle spasm Extremity Exam: normal inspection, normal range of motion, pelvis stable Neurologic Exam: alert, oriented x 3, cooperative, cloth grader II-XII nml as tested Skin Exam: normal color, warm, dry Lymphatic Exam: No adenopathy SpO2 Interpretation: normal O2 Delivery: Room Air - Course Nursing assessment & vital signs reviewed: Yes Ordered Tests: Active Orders 24 hr Category Date Time Status CULTURE,URINE Stat Lab 08/03/23 09:41 Received UA W/RFX UR CULTURE Stat Lab 08/03/23 09:41 Completed Medication Summary Discontinued Medications Generic Name Dose Route Start Last Admin Trade Name Agustín PRN Reason Stop Dose Admin Methylprednisolone Sodium 0 mg 08/03/23 09:17 08/03/23 09:38 Succinate 125 mg/ Sterile IM 08/03/23 09:18 125 mg Water 2 ml STAT ONE Administration Hydromorphone HCl 0.5 mg 08/03/23 09:17 08/03/23 09:37 Hydromorphone 1 Mg/1ml Inj IM 08/03/23 09:18 0.5 mg STAT ONE Administration Hydromorphone HCl Confirm 08/03/23 09:30 Hydromorphone 1 Mg/1ml Inj Administered 08/03/23 09:31 Dose 1 mg .ROUTE .STK-MED ONE Methylprednisolone Sodium Succinate Confirm 08/03/23 09:31 Methylprednis Sod Succ 125 Mg/2 Ml Vial Administered 08/03/23 09:32 Dose 125 mg .ROUTE .STK-MED ONE Ondansetron HCl 4 mg 08/03/23 09:18 08/03/23 09:38 Zofran 4 Mg/Udtablet Orally Disintegrating PO 08/03/23 09:19 4 mg STAT ONE Administration Ondansetron HCl Confirm 08/03/23 09:29 Zofran 4 Mg/Udtablet Orally Disintegrating Administered 08/03/23 09:30 Dose 4 mg .ROUTE .STK-MED ONE Orphenadrine Citrate 60 mg 08/03/23 09:17 08/03/23 09:38 Orphenadrine Citrate 60 Mg/2 Ml Vial IM 08/03/23 09:18 60 mg STAT ONE Administration Orphenadrine Citrate Confirm 08/03/23 09:30 Orphenadrine Citrate 60 Mg/2 Ml Vial Administered 08/03/23 09:31 Dose 60 mg .ROUTE .STK-MED ONE Sterile Water Confirm 08/03/23 09:29 Water For Injection,Sterile 10 Ml Vial Administered 08/03/23 09:30 Dose 10 ml IJ .STK-MED ONE Lab/Rad Data: Laboratory Results 08/03/23 Range/Units 09:41 Urine Color Yellow (Yellow) Urine Appearance Clear (Clear) Urine pH 8.0 (4.6-8.0) Ur Specific [place] 1.015 (1.005-1.030) Urine Protein Negative (Negative) Urine Glucose (UA) Negative (Negative) mg/dL Urine Ketones Negative (Negative) Urine Blood Negative (Negative) Urine Nitrite Negative (Negative) Urine Bilirubin Negative (Negative) Urine Urobilinogen 1.0 A (0.2) mg/dL Ur Leukocyte Esterase Negative (Negative) U Hyaline Cast (Auto) NONE SEEN (0-2) /LPF Urine Microscopic RBC 0-2 (0-5) /HPF Urine Microscopic WBC 11-20 A (0-5) /HPF Ur Epithelial Cells None Seen (None Seen) /HPF Urine Bacteria None Seen (None Seen) /HPF Urine Culture Reflexed ORDERED SEPARATELY (NO) - Progress Progress: improved, pain not gone completely, re-examined Progress Note: 08/03/23 09:12 This patient's medical issue is 1 of low complexity. The level of complexity in the work-up performed is based on review of the patient's past medical history, review the patient's drug allergy list, review the patient's history present illness and physical findings on examination. This patient is here secondary to chronic recurrent urinary retention. Patient is having Duran catheter placed and we will send off a urinalysis. Patient is also here to help relieve some of his back pain. We will provide the patient with intramuscular Dilaudid, intramuscular Solu-Medrol and intramuscular orphenadrine Counseled pt/family regarding: lab results, diagnosis, need for follow-up Medical Desision Making - Independent Historian Additional History obtained from: Mother - Diagnostic Testing Diagnostic test were ordered, analyzed, and reviewed by me: Yes - Risk of complications The pt has a mod risk of morbidity or mortality based on: Need for prescription drug management - Departure Departure Disposition: Home Clinical Impression: Urinary retention, Acute exacerbation of chronic low back pain Condition: Stable Critical Care Time: No Referrals: [facility] CALENDER WORKER HELPER [Primary Care Provider] - Follow up/PCP as directed Additional Instructions: Follow-up with your urologist, back specialist, pain specialist and primary care provider today, 08/03/2023, by phone to make arrangements for further evaluation and management continue your usual medications as prescribed. Take the new medication as prescribed. Prescriptions: Prednisone 10 mg [Deltasone 10 mg] 10 mg PO TID #12 tablet
[2023-08-03 08:39] VITALS: RESP 24; TEMP 97.2
[2023-08-03] MEDS ORDERED: Norflex 60 MG/2 ML IM ONE (09:17)
[2023-08-03] MEDS ORDERED: solu-MEDROL 125 MG, Sterile H2O 10 ml 2 ML IM ONE ×2 (09:17)
[2023-08-03] MEDS ORDERED: Hydromorphone 1 mg/ml Injection IM ONE (09:17)
[2023-08-03] MEDS ORDERED: ZOFRAN ODT 4 MG PO ONE (09:18)
[2023-08-03] MEDS ORDERED: ZOFRAN ODT 4 MG ONE (09:29)
[2023-08-03] MEDS ORDERED: Sterile H2O 10 ml IJ ONE (09:29)
[2023-08-03] MEDS ORDERED: Hydromorphone 1 mg/ml Injection ONE (09:30)
[2023-08-03] MEDS ORDERED: Norflex 60 MG/2 ML ONE (09:30)
[2023-08-03] MEDS ORDERED: solu-MEDROL ONE (09:31)
[2023-08-03 10:30] LABS: ADD URINE CULTURE? ORDERED SEPARATELY (NO); Appearance Clear (Clear); Bacteria None Seen /HPF (None Seen); Bilirubin Negative (Negative); Blood Negative (Negative); Epithelial Cells None Seen /HPF (None Seen); Glucose, Urine Negative (Negative); Hyaline Casts NONE SEEN /LPF (0-2); Ketones Negative (Negative); Leukocyte Esterase Negative (Negative); Nitrite Negative (Negative); Protein,Urine Dip Negative (Negative); RBC 0-2 /HPF (0-5); Specific Gravity 1.015 (1.005-1.030)
[2023-08-03 10:43] VITALS: O2SAT 95
[2023-08-03 11:04] VITALS: BP 103/77; PULSE 71
== END 2023-08-03 11:18 | disposition home or self-care (01) ==
LOC: ED 08:29
DX: R33.9 Retention of urine, unspecified (principal); G89.29 Other chronic pain; M54.50 Low back pain, unspecified; Z79.52 Long term (current) use of systemic steroids; Z79.891 Long term (current) use of opiate analgesic; Z79.899 Other long term (current) drug therapy
CPT/HCPCS: 81001; 87086; 96372; 99283; J1170; J2360; J2930; Q0162

== ENCOUNTER 2023-08-28 15:27 | Emergency (ER) | payer MEDICARE ==
[2023-08-28] MEDS ORDERED: Hydromorphone 1 mg/ml Injection IV ONE (15:45)
--- NOTE | 2023-08-28 15:49 | ERPHSYRPT ---
- History of Present Illness Time Seen by Provider: 08/28/23 15:45 Source: patient Exam Limitations: no limitations Physician History: Patient is a 47-year-old white male who was cooking beans when he spilled a hot container of beans on his lower extremities genitals were spared no other area of gallego it is a superficial appearing situation. Timing/Duration: today Quality: burning Severity: moderate Location: extremities (Both lower extremities and the left forearm) Possible Causes: other (Hot cattle of beans) Allergies/Adverse Reactions: gabapentin Allergy (Verified 08/28/23 15:43) Home Medications: Buprenorphine HCl [Belbuca] 900 mcg PO Q12H 08/19/20 [History] Lisinopril 10 mg [Zestril 10 MG] 10 mg PO DAILY 08/19/20 [History] Chlorthalidone 25 mg PO DAILY 07/15/23 [History] Codeine Sulfate 30 mg PO QID 07/15/23 [History] Lemborexant [Dayvigo] 10 mg PO UD 07/15/23 [History] Pregabalin [Lyrica 150Mg] 150 mg PO TID 07/15/23 [History] Testosterone Cypionate 200 mg IM WEEKLY 07/15/23 [History] Hx Tetanus, Diphtheria Vaccination/Date Given: Yes Hx Influenza Vaccination/Date Given: Yes Hx Pneumococcal Vaccination/Date Given: No Travel Risk - Vaccine Status Have you recieved a Covid-19 vaccination: Yes [employer] Protection Specialist: Moderna - Vaccination Dates Date of 2cond Vaccination (if applicable): january - Review of Systems Constitutional: No Fever, No Chills Eyes: No Symptoms Ears, Nose, & Throat: No Symptoms Respiratory: No Cough, No Dyspnea Cardiac: No Chest Pain, No Edema, No Syncope Abdominal/Gastrointestinal: No Abdominal Pain, No Nausea, No Vomiting, No Diarrhea Genitourinary Symptoms: No Dysuria Musculoskeletal: No Back Pain, No Neck Pain Skin: No Rash Neurological: No Dizziness, No Focal Weakness, No Sensory Changes Psychological: No Symptoms Endocrine: No Symptoms All Other Systems: Reviewed and Negative - Past Medical History Pertinent Past Medical History: Yes Musculoskeletal History: Other History: Other Other Medical History: l4 and l5 blown out disc - Past Surgical History Past Surgical History: Yes Musculoskeletal: Orthopedic Surgery Other Surgical History: has stimulator in back, shoulder. back surgery - Social History Smoking Status: Former smoker Exposure to second hand smoke: No Drug Use: marijuana Patient Lives Alone: No - Nursing Vital Signs Nursing Vital Signs: Initial Vital Signs Temperature 97.3 F 08/28/23 15:44 Pulse Rate 118 H 08/28/23 15:44 Respiratory Rate 18 08/28/23 15:44 Blood Pressure 104/82 08/28/23 15:44 O2 Sat by Pulse Oximetry 98 08/28/23 15:44 Pain Scale Pain Intensity 10 - Physical Exam General Appearance: no apparent distress, alert Eye Exam: PERRL/EOMI, eyes nml inspection Ears, Nose, Throat Exam: normal ENT inspection, pharynx normal, moist mucous membranes Neck Exam: normal inspection, non-tender, supple, full range of motion Respiratory Exam: normal breath sounds, lungs clear, No respiratory distress Cardiovascular Exam: regular rate/rhythm, normal heart sounds Gastrointestinal/Abdomen Exam: soft, mass, No tenderness Back Exam: normal inspection, normal range of motion, No CVA tenderness, No vertebral tenderness Extremity Exam: normal inspection, normal range of motion Neurologic Exam: alert, oriented x 3, cooperative, normal mood/affect, sensation nml, No motor deficits Skin Exam: normal color, warm, dry, other (First-degree gallego to the anterolateral surfaces of both lower extremities and to the left forearm.) SpO2 Interpretation: normal SpO2: 95 O2 Delivery: Room Air - Course Nursing assessment & vital signs reviewed: Yes Ordered Tests: Medication Summary Discontinued Medications Generic Name Dose Route Start Last Admin Trade Name Freq PRN Reason Stop Dose Admin Hydromorphone HCl 2 mg 08/28/23 15:45 08/28/23 16:00 Hydromorphone 1 Mg/1ml Inj IV 08/28/23 15:46 2 mg STAT ONE Administration Hydromorphone HCl Confirm 08/28/23 15:57 Hydromorphone 1 Mg/1ml Inj Administered 08/28/23 15:58 Dose 2 mg .ROUTE .STK-MED ONE Ondansetron HCl Confirm 08/28/23 15:57 Ondansetron Hcl 4 Mg/2 Ml Vial Administered 08/28/23 15:58 Dose 4 mg .ROUTE .STK-MED ONE Ondansetron HCl 4 mg 08/28/23 15:59 08/28/23 15:59 Ondansetron Hcl 4 Mg/2 Ml Vial IV 08/28/23 16:00 4 mg STAT ONE Administration - Progress Progress: improved Progress Note: 08/28/23 16:29 Pain medicine was not prescribed because he is on a pain program. Medical Desision Making - Risk of complications Low Risk: Low risk of morbidity from additional dx testing or treatment - Departure Departure Disposition: Home Clinical Impression: First degree gallego of multiple sites Condition: Stable Critical Care Time: No Referrals: FINA CONTEH REEL AND REWINDER OPERATOR [Primary Care Provider] - Follow up/PCP as directed Instructions: Skin gallego
[2023-08-28 15:53] VITALS: RESP 18; TEMP 97.3
[2023-08-28] MEDS ORDERED: Hydromorphone 1 mg/ml Injection ONE (15:57)
[2023-08-28] MEDS ORDERED: Zofran 4 MG/2 ML VIAL ONE (15:57)
[2023-08-28] MEDS ORDERED: Zofran 4 MG/2 ML VIAL IV ONE (15:59)
[2023-08-28] MEDS ORDERED: SILVADENE 50 GM TP ONE ×2 (16:21→17:09)
[2023-08-28 16:27] VITALS: O2SAT 95
[2023-08-28 17:22] VITALS: BP 100/55; PULSE 72
== END 2023-08-28 17:30 | disposition home or self-care (01) ==
LOC: ED 15:27
DX: T24.102A Burn of first degree of unspecified site of left lower limb, except ankle and foot, initial encounter (principal); T24.101A Burn of first degree of unspecified site of right lower limb, except ankle and foot, initial encounter; T22.112A Burn of first degree of left forearm, initial encounter; X10.1XXA Contact with hot food, initial encounter; Y93.G1 Activity, food preparation and clean up; Z79.891 Long term (current) use of opiate analgesic; Z79.899 Other long term (current) drug therapy
CPT/HCPCS: 16020; 36000; 96374; 96375; 99283; J1170; J2405; A9270-GY

== ENCOUNTER 2024-01-28 08:33 | Emergency (ER) | payer MEDICARE ==
[2024-01-28 08:48] VITALS: BP 125/68; PULSE 70; TEMP 98.2; O2SAT 99
[2024-01-28] MEDS ORDERED: MORPHINE SULFATE 4 MG INJ ONE (08:59)
[2024-01-28] MEDS ORDERED: TORAdol 30 mg Injection ONE (08:59)
[2024-01-28] MEDS: MORPHINE SULFATE 4 MG INJ IV ONE (09:02)
[2024-01-28] MEDS: TORAdol 30 mg Injection IM ONE (09:02)
[2024-01-28] MEDS: MORPHINE SULFATE 4 MG INJ IM ONE (09:02)
--- NOTE | 2024-01-28 09:04 | ERPHSYRPT ---
- History of Present Illness Time Seen by Provider: 01/28/24 09:02 Source: patient Exam Limitations: no limitations Patient Subjective Stated Complaint: Pt states that he was outside yesterday and his walker got caught on the grass and he fell over it and now he has low left back pain that radiates down his left leg Triage Nursing Assessment: Pt was brought to the ER by a friend, dwaine wnl, rates pain as 10/10, holding buttock and leg and semi rolling in the bed and crying, pulses normal, skin n/w/d, no difficulty breathing, denies LOC, nauseated, hx of back surgery, doesn't appear to be in real distress Physician History: Pt states that he was outside yesterday and his walker got caught on the grass and he fell over it and now he has low left back pain that radiates down his left leg rates pain as 10/10, holding buttock and leg and semi rolling in the bed and crying, Timing/Duration: yesterday Method of Injury: fall Quality: radiating, sharp, aching Back Pain Location: T-spine Back Pain Radiation: upper legs, lower legs Severity of Pain-Max: moderate Severity of Pain-Current: severe Modifying Factors: Improves With: pain medication Associated Symptoms: denies symptoms Previous symptoms: same symptoms as today Allergies/Adverse Reactions: gabapentin Allergy (Verified 01/28/24 08:49) Home Medications: Buprenorphine HCl [Belbuca] 900 mcg PO Q12H 08/19/20 [History] Lisinopril 10 mg [Zestril 10 MG] 10 mg PO DAILY 08/19/20 [History] Chlorthalidone 25 mg PO DAILY 07/15/23 [History] Codeine Sulfate 30 mg PO QID 07/15/23 [History] Lemborexant [Dayvigo] 10 mg PO UD 07/15/23 [History] Pregabalin [Lyrica 150Mg] 150 mg PO TID 07/15/23 [History] Testosterone Cypionate 200 mg IM WEEKLY 07/15/23 [History] Omeprazole 40 mg PO DAILY 01/28/24 [History] Hx Tetanus, Diphtheria Vaccination/Date Given: Yes Hx Influenza Vaccination/Date Given: Yes Hx Pneumococcal Vaccination/Date Given: No Travel Risk - International Travel Have you traveled outside of the country in past 3 weeks: No - Emerging Infectious Disease Are you exhibiting symptoms associated with any current EIDs: No - Review of Systems Constitutional: No Fever, No Chills Eyes: No Symptoms Ears, Nose, & Throat: No Symptoms Respiratory: No Cough, No Dyspnea Cardiac: No Chest Pain, No Edema, No Syncope Abdominal/Gastrointestinal: No Abdominal Pain, No Nausea, No Vomiting, No Diarr hea Genitourinary Symptoms: No Dysuria Musculoskeletal: Back Pain, Fall, No Neck Pain, No Injury Skin: No Rash Neurological: No Dizziness, No Focal Weakness, No Sensory Changes Psychological: No Symptoms Endocrine: No Symptoms All Other Systems: Reviewed and Negative - Past Medical History Pertinent Past Medical History: Yes Musculoskeletal History: Other History: Other Other Medical History: l4 and l5 blown out disc, nerve stimulator removed from back 11/2023 - Past Surgical History Past Surgical History: Yes Musculoskeletal: Orthopedic Surgery Other Surgical History: has stimulator in back, stimulator removed, shoulder. back surgery - Social History Smoking Status: Former smoker Exposure to second hand smoke: No Drug Use: marijuana Patient Lives Alone: No - Nursing Vital Signs Nursing Vital Signs: Initial Vital Signs Temperature 98.2 F 01/28/24 08:41 Pulse Rate 70 01/28/24 08:41 Blood Pressure 125/68 01/28/24 08:41 O2 Sat by Pulse Oximetry 99 01/28/24 08:41 Pain Scale Pain Intensity 10 - Physical Exam General Appearance: no apparent distress, alert Eye Exam: PERRL/EOMI, eyes nml inspection Neck Exam: normal inspection, non-tender, supple, full range of motion, No meningismus, No midline tenderness Respiratory Exam: normal breath sounds, lungs clear, No respiratory distress Cardiovascular Exam: regular rate/rhythm, normal heart sounds Gastrointestinal Exam: soft, No tenderness, No mass Back Exam: decreased range of motion, muscle spasm, No vertebral tenderness, No point tenderness Extremity Exam: normal inspection, normal range of motion, No calf tenderness, No pedal edema Neurologic Exam: alert, oriented x 3, cooperative, handling tech II-XII nml as tested, normal mood/affect, nml station & gait, sensation nml, No motor deficits Skin Exam: normal color, warm, dry, No rash SpO2: 99 - Course Nursing assessment & vital signs reviewed: Yes - Radiology Exams L-Spine X-ray Interpretation: Interpreted by me (L2-3 left lateral disc narrowing), Reviewed by me Ordered Tests: Active Orders 24 hr Category Date Time Status LUMBAR LIMITED (2 OR 3 VIEWS) Stat Exams 01/28/24 09:08 Taken Medication Summary Discontinued Medications Generic Name Dose Route Start Last Admin Trade Name Agustín PRN Reason Stop Dose Admin Ketorolac Tromethamine 60 mg 01/28/24 08:48 01/28/24 09:02 Ketorolac Tromethamine 30 Mg/Ml Inj IM 01/28/24 08:49 60 mg STAT ONE Administration Ketorolac Tromethamine Confirm 01/28/24 08:59 Ketorolac Tromethamine 30 Mg/Ml Inj Administered 01/28/24 09:00 Dose 60 mg .ROUTE .STK-MED ONE Morphine Sulfate 4 mg 01/28/24 08:48 01/28/24 09:02 Morphine Sulfate 4 Mg/Ml Injection IV 01/28/24 08:49 Not Given STAT ONE Morphine Sulfate 4 mg 01/28/24 08:50 01/28/24 09:02 Morphine Sulfate 4 Mg/Ml Injection IM 01/28/24 08:51 4 mg STAT ONE Administration Morphine Sulfate Confirm 01/28/24 08:59 Morphine Sulfate 4 Mg/Ml Injection Administered 01/28/24 09:00 Dose 4 mg .ROUTE .STK-MED ONE - Progress Progress: improved, pain not gone completely Counseled pt/family regarding: diagnosis, need for follow-up, rad results Medical Desision Making - Diagnostic Testing Diagnostic test were ordered, analyzed, and reviewed by me: Yes Radiological Interpretation: Interpreted by me, Reviewed by me - Risk of complications Minimal Risk: Minimal risk of morbidity - Departure Departure Disposition: Home Clinical Impression: Left-sided low back pain with sciatica Qualifiers: Chronicity: acute Sciatica laterality: sciatica of left side Qualified Code(s): M54.42 - Lumbago with sciatica, left side Condition: Stable Critical Care Time: No Referrals: FINA CONTEH TRAINING DEVELOPMENT SPECIALIST [Primary Care Provider] - Follow up/PCP as directed Instructions: Preventing falls in adults, Low Back Pain (DC), Radiculopathy (DC), Sciatica (DC) Additional Instructions: Discharge/Care Plan REGINE ROSE was seen on 01/28/24 in the Emergency Room. The patient was counseled regarding Diagnosis,Lab results, Imaging studies, need for follow up and when to return to the Emergency Room. Prescriptions given: Discharge Note I have spoken with the patient and/or caregivers. I have explained the patient's condition, diagnosis and treatment plan based on the information available to me at this time. I have answered the patient's and/or caregiver's questions and addressed any concerns. The patient and/or caregivers have as good understanding of the patient's diagnosis, condition and treatment plan as can be expected at this point. The vital signs have been stable. The patient's condition is stable and appropriate for discharge from the emergency department. The patient will pursue further outpatient evaluation with the primary care physician or other designated or consulting physician as outlined in the discharge instructions. The patient and/or caregivers are agreeable to this plan of care and follow-up instructions have been explained in detail. The patient and/or caregivers have received these instruction. The patient/and or caregivers are aware that any significant change in condition or worsening of symptoms should prompt an immediate return to this or the closest emergency department or call 911. REGINE ROSE was seen on 01/28/24 n the Emergency Room. At that time you were treated for an emergent condition, during your visit Laboratory, Radiology and/or other procedures may have been ordered. It is very important that you follow-up with your Primary Care Physician FINA CONTEH NP within the next 24-48 hours to review your Emergency Room visit and the final results of testing that was ordered. Some test results such as Urine Cultures, Blood Cultures, and other cultures if ordered will not be finalized for 24-48 hours. If you do not have a Primary Care Provider please call the medical records department at [phone] ext [phone] to obtain a copy of your results or you may sign into our patient portal to obtain these results by visiting us @ [email or web address] and completing the following steps: 1. Click on the Patient Portal link 2. Click the Patient Self Enrollment Link to complete the enrollment form and entering your 3. Once the enrollment form is completed you will receive an email with a temporary ID and password at the email address you provided. 4. Next choose a user name and password. Your user name must be at least 4 characters long and your password must be at least 4 characters long. 5. Choose a security question from the list and provide your answer to the question. If you already have signed into the Health Portal you may access your Health Care Information 10/04 by the following steps: 1. Login to our website @ [email or web address] 2. Enter your original user name and password. FAQS [facility] Portal is an online tool that contains your Lab Results, Radiology Reports, Visit History, Discharge Instructions and Health Summary Lab and Radiology Results will not be available for 72 hours on the portal. The Portal is a secure site, passwords are encryted and URLs are re-written so they cannot be copied and pasted. You and authorized family members are the only ones who can access your Portal. Also there is a timeout feature that protects your information if you leave the Portal page open. If you have technical difficulty please use the Contact Us link on the page this will allow you to submit any questions you have regarding the Portal or you may contact the Medical Record Department at [phone] ext [phone]. Prescriptions: Ketorolac Trometh 10 mg Tab [TORAdol 10 MG TABLET] 10 mg PO QID #20 tablet
--- NOTE | 2024-01-28 17:51 | XRAY ---
Indication: Pain following fall. Comparison: None 3 view lumbar spine demonstrates 5 lumbar segments in normal alignment with minimal L4-S1 endplate spurring and L5-S1 disc space disc space loss with vacuum disc phenomena. No other bony, articular, or soft tissue abnormalities.
== END 2024-01-28 09:39 | disposition home or self-care (01) ==
LOC: ED 08:33
DX: M54.42 Lumbago with sciatica, left side (principal); Z79.891 Long term (current) use of opiate analgesic; Z79.899 Other long term (current) drug therapy
CPT/HCPCS: 72100; 96372; 99283; J1885; J2270

== ENCOUNTER 2024-07-02 13:16 | Emergency (ER) | payer MEDICARE, SELFPAY ==
[2024-07-02 13:19] VITALS: TEMP 98.8; O2SAT 97
[2024-07-02] MEDS ORDERED: TORAdol 30 mg Injection ONE (13:36)
[2024-07-02] MEDS ORDERED: Cyclobenzaprine 10 MG ONE (13:37)
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
[2024-07-02] MEDS: Cyclobenzaprine 10 MG PO ONE (13:39)
[2024-07-02] MEDS: TORAdol 30 mg Injection IM ONE (13:39)
[2024-07-02 14:26] VITALS: PULSE 70; RESP 18
--- NOTE | 2024-07-02 15:06 | XRAY ---
Indication: Low back pain. Multiple contiguous axial images obtained through the lumbar spine. Sagittal and coronal reformatted images obtained. Comparison: CT abdomen/pelvis July 15, 2023 Stable L5-S1 degenerative vacuum disc phenomena with opposing endplate bony sclerosis/spurring. Again no large disc herniation or spinal canal stenosis. Facets are symmetric. Sagittal and coronal reformatted images again demonstrates normal lumbar alignment with L5-S1 disc space loss. No acute compression fracture or subluxation. Visualized noncontrasted soft tissues are unremarkable. Impression: Stable L5-S1 degenerative disc disease better evaluated with outpatient MRI if clinically warranted. Remaining CT lumbar spine is normal.
[2024-07-02 15:14] VITALS: BP 98/47
== END 2024-07-02 15:30 | disposition home or self-care (01) ==
LOC: ED 13:16
DX: S39.012A Strain of muscle, fascia and tendon of lower back, initial encounter (principal); Y04.2XXA Assault by strike against or bumped into by another person, initial encounter; M51.379 Other intervertebral disc degeneration, lumbosacral region without mention of lumbar back pain or lower extremity pain; E78.5 Hyperlipidemia, unspecified; I10 Essential (primary) hypertension; Z79.891 Long term (current) use of opiate analgesic; Z79.899 Other long term (current) drug therapy
CPT/HCPCS: 72131; 96372; 99283; J1885; A9270-GY